=== PATIENT | female | born 1995 | race Asian ===

== ENCOUNTER 2017-09-05 14:38 | Emergency (ER) | payer SELFPAY ==
[~2017-09-05] VITALS: Ht 157.5 cm; Wt 55.0 kg
[2017-09-06 02:52] LABS: CLARITY URINE CLEAR (CLEAR); COLOR URINE YELLOW (YELLOW); KETONES URINE 1+ (NEGATIVE); LEUKOCYTE ESTERASE URINE NEGATIVE (NEGATIVE); NITRITE URINE NEGATIVE (NEGATIVE); OCCULT BLOOD URINE NEGATIVE (NEGATIVE); PH URINE 5.5 (4.5-8.0); PROTEIN URINE NEGATIVE (NEGATIVE); SPECIFIC GRAVITY URINE 1.029 (1.005-1.030); UROBILINOGEN URINE 0.2 E.U./dL (0.2-1.0)
[2017-09-06] MEDS ORDERED: SODIUM CHLORIDE 0.9% 500 ML IV ONE (04:05)
[2017-09-06] MEDS ORDERED: ONDANSETRON HCL 4MG/2ML VIAL IV ONE (04:15)
[2017-09-06 04:29] LABS: BASOPHILS % 0.3 % (0.0-2.0); EOSINOPHILS % 0.7 % (0.0-5.0); HEMATOCRIT. 40.6 % (36.0-48.0); HEMOGLOBIN. 13.6 g/dL (12.0-16.0); LYMPHOCYTES % 14.5 % (20.0-50.0); MEAN CORPUSCULAR HEMOGLOBIN 28.6 pg (28.0-32.0); MEAN CORPUSCULAR VOLUME 85.3 fL (81.0-99.0); MONOCYTES % 6.9 % (2.0-8.0); NEUTROPHILS % 77.6 % (40.0-76.0); PLATELET 230 x1000/uL (130-400); RED BLOOD CELL COUNT 4.76 mill/uL (4.2-5.4); RED CELL DISTRIBUTION WIDTH 13.1 % (11.6-14.6)
[2017-09-06 04:34] LABS: INR 1.1
[2017-09-06 04:36] LABS: CHLORIDE 105 mEq/L (98-107)
[2017-09-06 04:45] LABS: CARBON DIOXIDE 29 mEq/L (21-32)
[2017-09-06 06:40] VITALS: BP 112/76
== END 2017-09-06 06:45 | disposition home or self-care (01) ==
LOC: ER 14:38
DX: R11.2 Nausea with vomiting, unspecified (principal); R79.1 Abnormal coagulation profile
CPT/HCPCS: 36415; 80053; 81003; 81025; 85025; 85610; 96374; 99284; J2405; J7040; Z7610